=== PATIENT | male | born 1965 | race Caucasian/White ===

== ENCOUNTER 2016-11-12 12:03 | Emergency (ER) | payer OTHER ==
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
[2016-11-12 13:13] VITALS: BP 158/96
== END 2016-11-12 12:40 ==
LOC: SUPCPDRO 12:03 → JD.ED 12:03 → MERGE 12:03 → JD.ED 12:40
DX: F10.10 Alcohol abuse, uncomplicated (principal); M25.561 Pain in right knee; M25.562 Pain in left knee; M25.552 Pain in left hip
CPT/HCPCS: 82962; 99282; 99284

== ENCOUNTER 2019-09-08 10:07 | Emergency (ER) | payer BC ==
[2019-09-08 10:31] VITALS: BP 152/97; PULSE 106
--- NOTE | 2019-09-08 11:39 | CR ---
Right fifth finger: 4 views of the right fifth finger were obtained. Comparison: No prior finger or hand exam is available. Dislocated PIP joint is noted. Middle phalanx is dislocated posteriorly in relation to the proximal phalanx. Diffuse soft tissue swelling is noted. Impression: 1. Dislocation as described above. Diagnostic code #3 This report was dictated in MDT
--- NOTE | 2019-09-08 12:43 | EDM.PDOC ---
ED HPI GENERAL MEDICAL PROBLEM - General Chief Complaint: Upper Extremity Injury/Pain Stated Complaint: PINKY INJURY WITH INFECTION Time Seen by Provider: 09/08/19 11:03 Source of Information: Reports: Patient History Limitations: Reports: No Limitations - History of Present Illness INITIAL COMMENTS - FREE TEXT/NARRATIVE: Patient is a 54-year-old male sent to the emergency department from the [place] with an injury to his right fifth finger. Patient is a neck alcoholic. On September 03, the patient states that he got up during the night and fell. He went to catch himself and cut his finger on the spring of a couch. Yesterday he noticed that the wound was becoming increasingly red swollen and had purulent drainage. He went to the [facility] and was given a 1 shot of 1 g Rocephin, however he refused x-rays at that time. He returned to the [facility] today for a second dose of Rocephin 1 g and voiced concern that he thinks he may have broken the finger. He was sent to our emergency department for evaluation. He denies any nausea, vomiting, fever, or chills. According to the notes from [facility], the erythema and edema to the finger has improved since yesterday. The healthcare provider at the [facility] was also concerned that he may need help to stop drinking. Discussed this with the patient he states that he does drink quite habitually. He has not drank in the last 2 days, however. He denies a history of seizures with alcohol withdrawal. He has been through treatment on one other occasion and stayed sober for 5 years. He denies needing assistance to stop drinkg and states "I know where to go if I need help. I've done it before". He is not currently working because the [employer] that he works for is not operating due to the COVID pandemic. 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 Right Finger-Index Pain Score (Numeric/FACES): 5 - Related Data Allergies Allergy/AdvReac Type Severity Reaction Status Date / Time No Known Allergies Allergy Verified 11/12/16 12:07 Home Meds: Home Meds cephALEXin [Keflex] 500 mg PO Q6H #20 capsule 09/08/19 [Rx] Past Medical History HEENT History: Reports: Impaired Vision Other HEENT History: wears eyeglasses Musculoskeletal History: Reports: Fracture Other Musculoskeletal History: plate and pin in left ankle - Past Surgical History GI Surgical History: Reports: Appendectomy Musculoskeletal Surgical History: Reports: Other (See Below) Other Musculoskeletal Surgeries/Procedures:: states had ankle "bust and had to have that fixed." Social & Family History - Tobacco Use Smoking Status *Q: Current Every Day Smoker Years of Tobacco use: 30 Packs/Tins Daily: 1 - Caffeine Use Caffeine Use: Reports: Coffee - Recreational Drug Use Recreational Drug Use: No Review of Systems - Review of Systems Review Of Systems: Comprehensive ROS is negative, except as noted in HPI. ED EXAM, GENERAL - Physical Exam Exam: See Below Exam Limited By: No Limitations General Appearance: Alert, WD/WN, No Apparent Distress Respiratory/Chest: No Respiratory Distress, Lungs Clear, Normal Breath Sounds, No Accessory Muscle Use, Chest Non-Tender Cardiovascular: Normal Peripheral Pulses, Regular Rate, Rhythm, No Edema, No Gallop, No JVD, No Murmur, No Rub Extremities: Other (2 cm horizontal laceration to the volar aspect of the right fifth finger between the MCP and the PIP joints. Small amount of purulent drainage noted from the laceration. It is slightly gaping.) Course - Vital Signs Last Recorded V/S: Last Vital Signs Temp 98.7 F 09/08/19 10:29 Pulse 106 H 09/08/19 10:29 Resp 20 09/08/19 10:29 BP 152/97 H 09/08/19 10:29 Pulse Ox 97 09/08/19 10:29 - Re-Assessments/Exams Free Text/Narrative Re-Assessment/Exam: 09/08/19 12:54 X-ray of the finger shows a dislocated PIP joint. There is some concern that there may be damage to the tendons or ligaments due to the depth of the laceration. Per [facility]'s notes, the erythema associate with infection has improved since yesterday. Called and spoke with Dr. Feng who is the on- call orthopedist. He recommended that the patient come to [facility] in [place] tomorrow to see a hand surgeon. Called [facility] and spoke with WILBERTO Reveles. She recommended that the patient arrived at [facility] tomorrow morning at 915 central time. He is to be n.p.o. after midnight. We will start him on oral Keflex for the infection to the laceration. An aluminum splint and antibiotic ointment has been applied to the finger. Discussed this with the patient and he is in agreement. Discharge instructions as documented Departure - Departure Time of Disposition: 12:56 Disposition: Home, Self-Care 01 Condition: Good Clinical Impression: Wound infection Dislocation, finger closed Qualifiers: Encounter type: initial encounter Qualified Code(s): S63.259A - Unspecified dislocation of unspecified finger, initial encounter - Discharge Information *PRESCRIPTION DRUG MONITORING PROGRAM REVIEWED*: No *COPY OF PRESCRIPTION DRUG MONITORING REPORT IN PATIENT DEVEN: No Prescriptions: cephALEXin [Keflex] 500 mg PO Q6H #20 capsule Instructions: Finger or Thumb Dislocation Referrals: PCP,None [Primary Care Provider] - Forms: ED Department Discharge Additional Instructions: Seen in the emergency department today for pain and swelling to your right pinky finger. On exam, there is an infection of the laceration on the surface of the skin. X-rays do show that you also dislocated your finger at the proximal interphalangeal joint. Arrangements have been made for you to be seen by a hand surgeon at the [facility] in [place]. You are to arrive there by 915 central time. It is essential that you do not eat or drink anything after midnight tonight in anticipation of surgery tomorrow. You have been prescribed an oral antibiotic, Keflex. Take this medication as prescribed to treat the infection in the wound. You may use Tylenol or ibuprofen as needed for pain. If you should experience any new or worsening symptoms of concern, please do not hesitate to return to the emergency department. Sepsis Event Note - Evaluation Sepsis Screening Result: No Definite Risk - Focused Exam Vital Signs: Vital Signs Temp Pulse Resp BP Pulse Ox 09/08/19 10:29 98.7 F 106 H 20 152/97 H 97 Date Exam was Performed: 09/08/19 Time Exam was Performed: 12:53
== END 2019-09-08 13:00 | disposition home or self-care (01) ==
LOC: JD.ED 10:07
DX: S63.286A Dislocation of proximal interphalangeal joint of right little finger, initial encounter (principal); F17.210 Nicotine dependence, cigarettes, uncomplicated; W45.8XXA Other foreign body or object entering through skin, initial encounter
CPT/HCPCS: 73140-26-F9; 73140-F9; 99282; 99283

== ENCOUNTER 2019-10-02 08:55 | Emergency (ER) | payer BC ==
[2019-10-02 09:08] VITALS: BP 173/107; PULSE 124
--- NOTE | 2019-10-02 09:40 | EDM.PDOC ---
ED HPI GENERAL MEDICAL PROBLEM - General Chief Complaint: Upper Extremity Injury/Pain Stated Complaint: POST SURGICAL ISSUES-R PINKY FINGER Time Seen by Provider: 10/02/19 09:25 Source of Information: Reports: Patient History Limitations: Reports: No Limitations - History of Present Illness INITIAL COMMENTS - FREE TEXT/NARRATIVE: The patient presents with left little finger, pain swelling and erythema. About 2 weeks ago he fell and dislocated his left little finger. He had surgery in [place] by who he thinks was Dr [facility]. He was on antibiotics for a week afterward. He said the swelling, pain and redness have never gotten better. He is scheduled for follow up on the 09 of October. He has no fever or chills. Onset: Sudden Duration: Week(s): Location: Reports: Upper Extremity, Right (little finger) Quality: Reports: Sharp Severity: Moderate Improves with: Reports: None Worsens with: Reports: None Associated Symptoms: Reports: No Other Symptoms Right Finger-Little Pain Score (Numeric/FACES): 5 - Related Data Allergies Allergy/AdvReac Type Severity Reaction Status Date / Time No Known Allergies Allergy Verified 10/02/19 09:08 Home Meds: Home Meds Hydrocodone/Acetaminophen [Hydrocodone-Acetamin 5-325 mg] 1 - 2 each PO Q6HR PRN #10 tablet 10/02/19 [Rx] cephALEXin [Keflex] 500 mg PO QID #40 capsule 10/02/19 [Rx] Past Medical History HEENT History: Reports: Impaired Vision Other HEENT History: wears eyeglasses Cardiovascular History: Reports: None Respiratory History: Reports: None Genitourinary History: Reports: None Musculoskeletal History: Reports: Fracture Other Musculoskeletal History: plate and pin in left ankle Neurological History: Reports: None Psychiatric History: Reports: Addiction Endocrine/Metabolic History: Reports: None Hematologic History: Reports: None Immunologic History: Reports: None Oncologic (Cancer) History: Reports: None Dermatologic History: Reports: None - Infectious Disease History Infectious Disease History: Reports: None - Past Surgical History GI Surgical History: Reports: Appendectomy Musculoskeletal Surgical History: Reports: Other (See Below) Other Musculoskeletal Surgeries/Procedures:: states had ankle "bust and had to have that fixed.". surgery to repair right pinky dislocation. Social & Family History - Tobacco Use Smoking Status *Q: Current Every Day Smoker Years of Tobacco use: 40 Packs/Tins Daily: 1 - Caffeine Use Caffeine Use: Reports: Coffee - Recreational Drug Use Recreational Drug Use: No Review of Systems - Review of Systems Review Of Systems: See Below Constitutional: Reports: No Symptoms Eyes: Reports: No Symptoms Ears: Reports: No Symptoms Nose: Reports: No Symptoms Mouth/Throat: Reports: No Symptoms Respiratory: Reports: No Symptoms Cardiovascular: Reports: No Symptoms GI/Abdominal: Reports: No Symptoms Musculoskeletal: Reports: Other (Pain, swelling and erythema of the right little finger) ED EXAM, GENERAL - Physical Exam Exam: See Below Exam Limited By: No Limitations General Appearance: Alert, No Apparent Distress Ears: Normal External Exam Nose: Normal Inspection Head: Atraumatic, Normocephalic Neck: Normal Inspection Respiratory/Chest: No Respiratory Distress Extremities: Other (Moderate swelling to the right little finger with erythema limited range of motion. Good sensation and capillary refill.) Course - Vital Signs Last Recorded V/S: Last Vital Signs Temp 97.8 F 10/02/19 09:03 Pulse 124 H 10/02/19 09:03 Resp 16 10/02/19 09:03 BP 173/107 H 10/02/19 09:03 Pulse Ox 94 L 10/02/19 09:03 - Re-Assessments/Exams Free Text/Narrative Re-Assessment/Exam: 10/02/19 09:39 I will get him back on antibiotics and something for pain and I will have him follow up with [facility] this week. Departure - Departure Time of Disposition: 09:40 Disposition: Home, Self-Care 01 Condition: Good Clinical Impression: Finger infection - Discharge Information *PRESCRIPTION DRUG MONITORING PROGRAM REVIEWED*: Not Applicable *COPY OF PRESCRIPTION DRUG MONITORING REPORT IN PATIENT DEVEN: Not Applicable Prescriptions: Hydrocodone/Acetaminophen [Hydrocodone-Acetamin 5-325 mg] 1 - 2 each PO Q6HR PRN #10 tablet PRN Reason: Pain cephALEXin [Keflex] 500 mg PO QID #40 capsule Referrals: PCP,None [Primary Care Provider] - Jacob Leonard MD [Ordering Only Provider] - 2 Days Additional Instructions: Take the keflex 4 times per day for 10 days. Take tylenol or motrin for pain. If that does not help, try the hydrocodone. Call [facility] tomorrow and see if they can get you in next week. Sepsis Event Note (ED) - Evaluation Sepsis Screening Result: No Definite Risk - Focused Exam Vital Signs: Vital Signs Temp Pulse Resp BP Pulse Ox 10/02/19 09:03 97.8 F 124 H 16 173/107 H 94 L
== END 2019-10-02 09:50 | disposition home or self-care (01) ==
LOC: JD.ED 08:55
DX: L08.9 Local infection of the skin and subcutaneous tissue, unspecified (principal); F17.210 Nicotine dependence, cigarettes, uncomplicated
CPT/HCPCS: 99283

== ENCOUNTER 2019-10-11 00:15 | Emergency (ER) | payer BC ==
[2019-10-11 00:30] VITALS: BP 150/98; PULSE 100
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
== END 2019-10-11 00:52 ==
LOC: JD.ED 00:15
DX: F10.129 Alcohol abuse with intoxication, unspecified (principal); Z77.22 Contact with and (suspected) exposure to environmental tobacco smoke (acute) (chronic)
CPT/HCPCS: 99284

== ENCOUNTER 2023-03-24 16:51 | Emergency (ER) | payer BC ==
[2023-03-24] MEDS ORDERED: Lactated Ringers 1,000 ML IV ONE (17:19)
[2023-03-24 17:57] LABS: BARBITURATE SCREEN,URINE NEGATIVE (CUTOFF=200); BENZODIAZEPINES SCREEN,URINE NEGATIVE (CUTOFF=150); BUPRENORPHINE SCREEN,URINE NEGATIVE (CUTOFF=10); METHADONE SCREEN, URINE NEGATIVE (CUT0FF=200); METHAMPHETAMINES SCREEN, URINE NEGATIVE (CUTOFF=500); OXYCODONE SCREEN,URINE NEGATIVE (CUT0FF=100); THC SCREEN,URINE 20 NG/ML NEGATIVE (CUTOFF=50)
[2023-03-24 18:01] LABS: AMPHETAMINES SCREEN, URINE NEGATIVE (CUTOFF=500)
[2023-03-24] MEDS ORDERED: Thiamine 100 MG Tab PO ONE (19:14)
[2023-03-24] MEDS ORDERED: Folic Acid 1 MG Tab PO ONE (19:14)
[2023-03-24 19:15] LABS: BASOPHILS PERCENT AUTO 0.7 % (0.0-1.0); EOSINOPHILS PERCENT AUTO 0.2 % (0.0-6.0); HEMATOCRIT 42.3 % (42.0-52.0); HEMOGLOBIN 14.9 gm/dl (14.0-18.0); IMMATURE GRAN ABSOLUTE AUTO 0.01 K/mm3 (0.00-0.05); IMMATURE GRAN PERCENT AUTO 0.2 % (0.0-0.4); LYMPHOCYTES ABSOLUTE AUTO 2.1 K/mm3 (1.0-4.8); LYMPHOCYTES PERCENT AUTO 37.1 % (24.0-44.0); MEAN CORPUSCULAR HEMOGLOBIN 35.5 pg (28.0-32.0); MEAN CORPUSCULAR HGB CONC 35.2 g/dl (32.0-36.0); MEAN CORPUSCULAR VOLUME 100.7 fl (83.0-99.0); MEAN PLATELET VOLUME 9.1 fl (9.4-12.4); MONOCYTES ABSOLUTE AUTO 0.6 K/mm3 (0.0-0.8); MONOCYTES PERCENT AUTO 10.3 % (0.0-8.0); NEUTROPHILS ABSOLUTE AUTO 2.9 K/mm3 (1.8-7.7); NEUTROPHILS PERCENT AUTO 51.5 % (41.0-71.0); PLATELET COUNT,PLT 216 K/mm3 (150-400); WHITE BLOOD CELL COUNT,WBC 5.61 K/mm3 (3.9-11.3)
[2023-03-24] MEDS ORDERED: Sodium Chloride 0.9% 1,000 ML IV SCH (19:15)
[2023-03-24 19:44] LABS: ETHANOL BLOOD MEDICAL 0.46 gm% (0.00); MAGNESIUM 1.5 mg/dL (1.8-2.4)
[2023-03-24 19:56] LABS: ALBUMIN 3.6 g/dl (3.4-5.0); ANION GAP 15.2 (5-15); BILIRUBIN TOTAL 0.5 mg/dL (0.2-1.0); BUN/CREATININE RATIO 11.3 (14-18); CREATININE 0.8 mg/dL (0.7-1.3); EST CRCL DRUG DOSING (CG) 97.38 mL/min; POTASSIUM,K 3.2 mEq/L (3.5-5.1); PROTEIN TOTAL,TP 7.2 g/dl (6.4-8.2)
[2023-03-24] MEDS ORDERED: Magnesium Oxide 400 MG Tab PO ONE (20:05)
[2023-03-24] MEDS ORDERED: Potassium Chloride 20 MEQ Tab.ER PO ONE (20:05)
[2023-03-24 23:32] VITALS: BP 132/83; PULSE 74
== END 2023-03-24 22:30 | disposition home or self-care (01) ==
LOC: JD.ED 16:51
DX: F10.929 Alcohol use, unspecified with intoxication, unspecified (principal); M48.02 Spinal stenosis, cervical region; F17.210 Nicotine dependence, cigarettes, uncomplicated; Z79.899 Other long term (current) drug therapy
CPT/HCPCS: 36415; 70450; 72125; 80053; 80306; 80307; 83735; 85025; 96360; 96361; 99284; A9270; J7030; J7120; 99282

== ENCOUNTER 2023-07-27 18:12 | Emergency (ER) | payer BC ==
[2023-07-27] MEDS: Albuterol/Ipratropium 3.0-0.5 MG/3 ML Neb Soln NEB ONE (18:50)
[2023-07-27 19:30] LABS: BASOPHILS ABSOLUTE AUTO 0.1 K/mm3 (0.0-0.2); BASOPHILS PERCENT AUTO 1.8 % (0.0-1.0); EOSINOPHILS ABSOLUTE AUTO 0.1 K/mm3 (0.0-0.4); EOSINOPHILS PERCENT AUTO 1.2 % (0.0-6.0); IMMATURE GRAN ABSOLUTE AUTO 0.03 K/mm3 (0.00-0.05); IMMATURE GRAN PERCENT AUTO 0.6 % (0.0-0.4); LYMPHOCYTES ABSOLUTE AUTO 1.5 K/mm3 (1.0-4.8); LYMPHOCYTES PERCENT AUTO 30.6 % (24.0-44.0); MEAN CORPUSCULAR HEMOGLOBIN 34.9 pg (28.0-32.0); MEAN CORPUSCULAR HGB CONC 35.2 g/dl (32.0-36.0); MEAN CORPUSCULAR VOLUME 99.2 fl (83.0-99.0); MEAN PLATELET VOLUME 9.1 fl (9.4-12.4); MONOCYTES ABSOLUTE AUTO 0.6 K/mm3 (0.0-0.8); MONOCYTES PERCENT AUTO 12.5 % (0.0-8.0); NEUTROPHILS ABSOLUTE AUTO 2.7 K/mm3 (1.8-7.7); NEUTROPHILS PERCENT AUTO 53.3 % (41.0-71.0); RED BLOOD CELL COUNT 5.04 M/mm3 (4.52-5.90); WHITE BLOOD CELL COUNT,WBC 5.03 K/mm3 (3.9-11.3)
[2023-07-27 19:31] LABS: HEMOGLOBIN 17.6 gm/dl (14.0-18.0); PLATELET COUNT,PLT 354 K/mm3 (150-400)
[2023-07-27] MEDS: Folic Acid 1 MG Tab PO ONE (19:31)
[2023-07-27] MEDS: Thiamine 100 MG Tab PO ONE (19:31)
[2023-07-27] MEDS: Sodium Chloride 0.9% 1,000 ML IV SCH (19:31)
[2023-07-27 19:55] LABS: A/G RATIO 1.1 (1-2); ALBUMIN 4.4 g/dl (3.4-5.0); ANION GAP 23.6 (5-15); BILIRUBIN TOTAL 0.5 mg/dL (0.2-1.0); BUN/CREATININE RATIO 16.4 (14-18); CALCIUM 9.3 mg/dL (8.5-10.1); CREATININE 1.1 mg/dL (0.7-1.3); EST CRCL DRUG DOSING (CG) 68.27 mL/min; ETHANOL BLOOD MEDICAL 0.38 gm% (0.00); POTASSIUM,K 4.6 mEq/L (3.5-5.1); PROTEIN TOTAL,TP 8.3 g/dl (6.4-8.2)
[2023-07-27 23:31] VITALS: BP 137/84; PULSE 115
== END 2023-07-27 21:15 | disposition home or self-care (01) ==
LOC: JD.ED 18:12
DX: F10.129 Alcohol abuse with intoxication, unspecified (principal); Z79.899 Other long term (current) drug therapy; Y90.1 Blood alcohol level of 20-39 mg/100 ml; Z90.49 Acquired absence of other specified parts of digestive tract
CPT/HCPCS: 36415; 71046; 80053; 80307; 85025; 94640; 96360; 99284; A9270; J7030; J7620-GY

== ENCOUNTER 2023-12-22 14:11 | Inpatient (IN) | payer BC ==
[2023-12-22] MEDS: Lactated Ringers 1,000 ML IV ONE ×3 (14:44→17:11)
[2023-12-22] MEDS: Sodium Chloride 0.9% 10 ML Syringe FLUSH PRN (14:45)
[2023-12-22 15:00] LABS: HEMATOCRIT 32.1 % (42.0-52.0); MEAN CORPUSCULAR HEMOGLOBIN 30.7 pg (28.0-32.0); MEAN CORPUSCULAR HGB CONC 32.4 g/dl (32.0-36.0); MEAN PLATELET VOLUME 8.7 fl (9.4-12.4); RED BLOOD CELL COUNT 3.39 M/mm3 (4.52-5.90); WHITE BLOOD CELL COUNT,WBC 20.01 K/mm3 (3.9-11.3)
[2023-12-22 15:02] LABS: HEMOGLOBIN 10.4 gm/dl (14.0-18.0); MEAN CORPUSCULAR VOLUME 94.7 fl (83.0-99.0); PLATELET COUNT,PLT 801 K/mm3 (150-400)
[2023-12-22 15:08] LABS: INR 1.11; PROTHROMBIN TIME 11.7 SECONDS (9.7-12.0)
[2023-12-22 15:11] LABS: A/G RATIO 0.5 (1-2); ALBUMIN 2.3 g/dl (3.4-5.0); ANION GAP 9.8 (5-15); BILIRUBIN TOTAL 0.7 mg/dL (0.2-1.0); CALCIUM 9.5 mg/dL (8.5-10.1); CREATININE 0.7 mg/dL (0.7-1.3); EST CRCL DRUG DOSING (CG) 93.75 mL/min; POTASSIUM,K 3.8 mEq/L (3.5-5.1); PROTEIN TOTAL,TP 7.2 g/dl (6.4-8.2)
[2023-12-22 15:14] LABS: LACTIC ACID 1.5 mmol/L (0.4-2.0)
[2023-12-22 15:27] LABS: CORONAVIRUS COVID-19 NAA NEGATIVE (NEGATIVE); INFLUENZA A NAA NEGATIVE (NEGATIVE); RESPIRATORY SYNCYTIAL VIR NAA NEGATIVE (NEGATIVE)
[2023-12-22 15:52] LABS: BAND PERCENT MAN 0 % (0-10); BASOPHILS PERCENT MAN 0 (0.2-1.2); EOSINOPHILS PERCENT MAN 0 % (0.8-7.0); LYMPHOCYTES % ATYPICAL MANUAL 0 %; LYMPHOCYTES PERCENT MAN 16 % (20-40); MONOCYTES PERCENT MAN 7 % (2-10)
[2023-12-22 15:53] LABS: PLATELET COUNT ESTIMATE INCREASED
[2023-12-22] MEDS: Piperacillin/Tazobactam 4.5 GM in Sodium Chloride 0.9% 100 ML IV ONE (15:55)
[2023-12-22] MEDS ORDERED: Lidocaine/Epineph/Tetracaine 3 ML Syringe TOP ONE (16:51)
[2023-12-22] MEDS: Piperacillin/Tazobactam 4.5 GM in Sodium Chloride 0.9% 100 ML IV SCH (23:32)
[2023-12-23] MEDS: Albuterol/Ipratropium 3.0-0.5 MG/3 ML Neb Soln NEB PRN (00:36)
[2023-12-23 05:26] LABS: A/G RATIO 0.5 (1-2); ALBUMIN 1.8 g/dl (3.4-5.0); ANION GAP 11.3 (5-15); BILIRUBIN TOTAL 0.4 mg/dL (0.2-1.0); BUN/CREATININE RATIO 8.6 (14-18); C-REACTIVE PROTEIN 14.36 mg/dL (<0.30); CALCIUM 8.2 mg/dL (8.5-10.1); CREATININE 0.7 mg/dL (0.7-1.3); EST CRCL DRUG DOSING (CG) 96.01 mL/min; POTASSIUM,K 3.3 mEq/L (3.5-5.1); PROTEIN TOTAL,TP 5.6 g/dl (6.4-8.2)
[2023-12-23] MEDS ORDERED: LORazepam 2 MG/ML SDV IVPUSH PRN ×2 (07:15→07:27)
[2023-12-23] MEDS ORDERED: LORazepam 1 MG Tab PO PRN (07:32)
[2023-12-23 07:40] LABS: BASOPHILS PERCENT AUTO 0.2 % (0.0-1.0); EOSINOPHILS PERCENT AUTO 0.2 % (0.0-6.0); IMMATURE GRAN ABSOLUTE AUTO 0.16 K/mm3 (0.00-0.05); IMMATURE GRAN PERCENT AUTO 0.8 % (0.0-0.4); LYMPHOCYTES ABSOLUTE AUTO 1.3 K/mm3 (1.0-4.8); LYMPHOCYTES PERCENT AUTO 6.7 % (24.0-44.0); MEAN CORPUSCULAR HEMOGLOBIN 31.1 pg (28.0-32.0); MEAN CORPUSCULAR HGB CONC 32.3 g/dl (32.0-36.0); MEAN CORPUSCULAR VOLUME 96.3 fl (83.0-99.0); MONOCYTES ABSOLUTE AUTO 1.7 K/mm3 (0.0-0.8); MONOCYTES PERCENT AUTO 8.7 % (0.0-8.0); NEUTROPHILS PERCENT AUTO 83.4 % (41.0-71.0); WHITE BLOOD CELL COUNT,WBC 19.17 K/mm3 (3.9-11.3)
[2023-12-23 07:42] LABS: HEMOGLOBIN 8.4 gm/dl (14.0-18.0); PLATELET COUNT,PLT 655 K/mm3 (150-400)
[2023-12-23 07:43] LABS: AMPHETAMINES SCREEN, URINE NEGATIVE (CUTOFF=500); BARBITURATE SCREEN,URINE NEGATIVE (CUTOFF=200); BENZODIAZEPINES SCREEN,URINE NEGATIVE (CUTOFF=150); BUPRENORPHINE SCREEN,URINE NEGATIVE (CUTOFF=10); METHADONE SCREEN, URINE NEGATIVE (CUT0FF=200); METHAMPHETAMINES SCREEN, URINE NEGATIVE (CUTOFF=500); OXYCODONE SCREEN,URINE NEGATIVE (CUT0FF=100); THC SCREEN,URINE 20 NG/ML NEGATIVE (CUTOFF=50)
[2023-12-23] MEDS: LORazepam 2 MG/ML SDV IVPUSH PRN ×2 (07:46→22:31)
[2023-12-23 07:52] LABS: SLIDE REVIEW ABNORMAL SMEAR
[2023-12-23] MEDS: Enoxaparin 40 MG/0.4 ML Syringe SUBCUT SCH (08:40)
[2023-12-23] MEDS: Potassium Chloride 20 MEQ Tab.ER PO ONE (20:16)
[2023-12-24 04:54] LABS: BASOPHILS ABSOLUTE AUTO 0.1 K/mm3 (0.0-0.2); BASOPHILS PERCENT AUTO 0.3 % (0.0-1.0); EOSINOPHILS ABSOLUTE AUTO 0.1 K/mm3 (0.0-0.4); EOSINOPHILS PERCENT AUTO 0.5 % (0.0-6.0); HEMATOCRIT 27.6 % (42.0-52.0); HEMOGLOBIN 8.8 gm/dl (14.0-18.0); IMMATURE GRAN ABSOLUTE AUTO 0.17 K/mm3 (0.00-0.05); IMMATURE GRAN PERCENT AUTO 0.9 % (0.0-0.4); LYMPHOCYTES ABSOLUTE AUTO 1.9 K/mm3 (1.0-4.8); LYMPHOCYTES PERCENT AUTO 10.1 % (24.0-44.0); MEAN CORPUSCULAR HEMOGLOBIN 30.8 pg (28.0-32.0); MEAN CORPUSCULAR HGB CONC 31.9 g/dl (32.0-36.0); MEAN CORPUSCULAR VOLUME 96.5 fl (83.0-99.0); MEAN PLATELET VOLUME 8.6 fl (9.4-12.4); MONOCYTES ABSOLUTE AUTO 1.5 K/mm3 (0.0-0.8); MONOCYTES PERCENT AUTO 7.9 % (0.0-8.0); NEUTROPHILS ABSOLUTE AUTO 14.8 K/mm3 (1.8-7.7); NEUTROPHILS PERCENT AUTO 80.3 % (41.0-71.0); PLATELET COUNT,PLT 765 K/mm3 (150-400); RED BLOOD CELL COUNT 2.86 M/mm3 (4.52-5.90); WHITE BLOOD CELL COUNT,WBC 18.38 K/mm3 (3.9-11.3)
[2023-12-24 05:23] LABS: A/G RATIO 0.5 (1-2); ALBUMIN 1.9 g/dl (3.4-5.0); ANION GAP 9.7 (5-15); BILIRUBIN TOTAL 0.4 mg/dL (0.2-1.0); BUN/CREATININE RATIO 11.4 (14-18); C-REACTIVE PROTEIN 10.74 mg/dL (<0.30); CALCIUM 9.1 mg/dL (8.5-10.1); CREATININE 0.7 mg/dL (0.7-1.3); EST CRCL DRUG DOSING (CG) 95.5 mL/min; MAGNESIUM 1.8 mg/dL (1.8-2.4); PHOSPHORUS 3.5 mg/dL (2.6-4.7); POTASSIUM,K 4.7 mEq/L (3.5-5.1); PROTEIN TOTAL,TP 6.1 g/dl (6.4-8.2)
[2023-12-24] MEDS: Magnesium Sulfate/Water 4 GM in Premix Bag 1 BAG IV ONE (14:45)
[2023-12-25 04:48] LABS: BASOPHILS ABSOLUTE AUTO 0.1 K/mm3 (0.0-0.2); BASOPHILS PERCENT AUTO 0.3 % (0.0-1.0); EOSINOPHILS ABSOLUTE AUTO 0.2 K/mm3 (0.0-0.4); EOSINOPHILS PERCENT AUTO 0.8 % (0.0-6.0); HEMATOCRIT 27.6 % (42.0-52.0); IMMATURE GRAN ABSOLUTE AUTO 0.32 K/mm3 (0.00-0.05); IMMATURE GRAN PERCENT AUTO 1.7 % (0.0-0.4); LYMPHOCYTES PERCENT AUTO 10.4 % (24.0-44.0); MEAN CORPUSCULAR HEMOGLOBIN 30.6 pg (28.0-32.0); MEAN CORPUSCULAR HGB CONC 32.6 g/dl (32.0-36.0); MEAN CORPUSCULAR VOLUME 93.9 fl (83.0-99.0); MEAN PLATELET VOLUME 8.5 fl (9.4-12.4); MONOCYTES ABSOLUTE AUTO 1.7 K/mm3 (0.0-0.8); MONOCYTES PERCENT AUTO 8.8 % (0.0-8.0); NEUTROPHILS ABSOLUTE AUTO 14.8 K/mm3 (1.8-7.7); PLATELET COUNT,PLT 717 K/mm3 (150-400); RED BLOOD CELL COUNT 2.94 M/mm3 (4.52-5.90); WHITE BLOOD CELL COUNT,WBC 19.02 K/mm3 (3.9-11.3)
[2023-12-25 05:14] LABS: A/G RATIO 0.5 (1-2); ALBUMIN 2.1 g/dl (3.4-5.0); ANION GAP 11.1 (5-15); BILIRUBIN TOTAL 0.4 mg/dL (0.2-1.0); BUN/CREATININE RATIO 15.7 (14-18); CALCIUM 8.5 mg/dL (8.5-10.1); CREATININE 0.7 mg/dL (0.7-1.3); EST CRCL DRUG DOSING (CG) 95.5 mL/min; MAGNESIUM 2.1 mg/dL (1.8-2.4); PHOSPHORUS 3.2 mg/dL (2.6-4.7); POTASSIUM,K 4.1 mEq/L (3.5-5.1); PROTEIN TOTAL,TP 6.2 g/dl (6.4-8.2); TSH 5.091 uIU/mL (0.358-3.74)
[2023-12-25 05:39] LABS: FOLIC ACID 6.5 ng/mL (8.6-58.9)
[2023-12-25 06:13] LABS: SLIDE REVIEW ABNORMAL SMEAR
[2023-12-25 07:47] LABS: T4 FREE 0.95 ng/dL (0.76-1.46)
[2023-12-25] MEDS: Folic Acid 1 MG Tab PO SCH (12:10)
[2023-12-25] MEDS: Thiamine 100 MG Tab PO SCH (12:10)
[2023-12-25] MEDS: Cholecalciferol (Vitamin D3) 5,000 UNIT Cap PO SCH (12:10)
[2023-12-25] MEDS: Sodium Chloride 0.9% 1,000 ML IV SCH (15:02)
[2023-12-25] MEDS: Nicotine 21 MG/24 Hr Patch TRDERM SCH (15:03)
[2023-12-26 05:38] LABS: BASOPHILS ABSOLUTE AUTO 0.1 K/mm3 (0.0-0.2); BASOPHILS PERCENT AUTO 0.4 % (0.0-1.0); EOSINOPHILS ABSOLUTE AUTO 0.2 K/mm3 (0.0-0.4); EOSINOPHILS PERCENT AUTO 1.3 % (0.0-6.0); HEMATOCRIT 27.8 % (42.0-52.0); HEMOGLOBIN 8.9 gm/dl (14.0-18.0); IMMATURE GRAN ABSOLUTE AUTO 0.32 K/mm3 (0.00-0.05); LYMPHOCYTES ABSOLUTE AUTO 1.9 K/mm3 (1.0-4.8); LYMPHOCYTES PERCENT AUTO 11.7 % (24.0-44.0); MEAN CORPUSCULAR HEMOGLOBIN 30.2 pg (28.0-32.0); MEAN CORPUSCULAR VOLUME 94.2 fl (83.0-99.0); MEAN PLATELET VOLUME 8.4 fl (9.4-12.4); MONOCYTES ABSOLUTE AUTO 1.4 K/mm3 (0.0-0.8); MONOCYTES PERCENT AUTO 8.8 % (0.0-8.0); NEUTROPHILS ABSOLUTE AUTO 12.1 K/mm3 (1.8-7.7); NEUTROPHILS PERCENT AUTO 75.8 % (41.0-71.0); PLATELET COUNT,PLT 710 K/mm3 (150-400); RED BLOOD CELL COUNT 2.95 M/mm3 (4.52-5.90); WHITE BLOOD CELL COUNT,WBC 15.93 K/mm3 (3.9-11.3)
[2023-12-26 06:10] LABS: A/G RATIO 0.5 (1-2); ALBUMIN 2.1 g/dl (3.4-5.0); BILIRUBIN TOTAL 0.3 mg/dL (0.2-1.0); BUN/CREATININE RATIO 14.3 (14-18); C-REACTIVE PROTEIN 6.49 mg/dL (<0.30); CALCIUM 8.9 mg/dL (8.5-10.1); CREATININE 0.7 mg/dL (0.7-1.3); EST CRCL DRUG DOSING (CG) 93.24 mL/min; MAGNESIUM 1.8 mg/dL (1.8-2.4); PROTEIN TOTAL,TP 6.4 g/dl (6.4-8.2)
[2023-12-26] MEDS ORDERED: Cholecalciferol (Vitamin D3) 5,000 UNIT Cap PO SCH (15:30)
[2023-12-26] MEDS: Magnesium Sulfate/Water 4 GM in Premix Bag 1 BAG IV ONE (15:35)
[2023-12-27 05:38] LABS: BASOPHILS ABSOLUTE AUTO 0.1 K/mm3 (0.0-0.2); BASOPHILS PERCENT AUTO 0.5 % (0.0-1.0); EOSINOPHILS ABSOLUTE AUTO 0.3 K/mm3 (0.0-0.4); HEMATOCRIT 30.1 % (42.0-52.0); HEMOGLOBIN 9.7 gm/dl (14.0-18.0); IMMATURE GRAN ABSOLUTE AUTO 0.37 K/mm3 (0.00-0.05); IMMATURE GRAN PERCENT AUTO 2.4 % (0.0-0.4); LYMPHOCYTES ABSOLUTE AUTO 2.8 K/mm3 (1.0-4.8); LYMPHOCYTES PERCENT AUTO 18.1 % (24.0-44.0); MEAN CORPUSCULAR HEMOGLOBIN 30.3 pg (28.0-32.0); MEAN CORPUSCULAR HGB CONC 32.2 g/dl (32.0-36.0); MEAN CORPUSCULAR VOLUME 94.1 fl (83.0-99.0); MEAN PLATELET VOLUME 8.5 fl (9.4-12.4); MONOCYTES ABSOLUTE AUTO 1.3 K/mm3 (0.0-0.8); MONOCYTES PERCENT AUTO 8.8 % (0.0-8.0); NEUTROPHILS ABSOLUTE AUTO 10.4 K/mm3 (1.8-7.7); NEUTROPHILS PERCENT AUTO 68.2 % (41.0-71.0); PLATELET COUNT,PLT 751 K/mm3 (150-400); WHITE BLOOD CELL COUNT,WBC 15.22 K/mm3 (3.9-11.3)
[2023-12-27 05:54] LABS: A/G RATIO 0.5 (1-2); ALBUMIN 2.2 g/dl (3.4-5.0); ANION GAP 11.7 (5-15); BILIRUBIN TOTAL 0.3 mg/dL (0.2-1.0); BUN/CREATININE RATIO 12.5 (14-18); CALCIUM 8.9 mg/dL (8.5-10.1); CREATININE 0.8 mg/dL (0.7-1.3); EST CRCL DRUG DOSING (CG) 82.16 mL/min; MAGNESIUM 1.9 mg/dL (1.8-2.4); POTASSIUM,K 3.7 mEq/L (3.5-5.1); PROTEIN TOTAL,TP 6.6 g/dl (6.4-8.2)
[2023-12-27] MEDS: Acetaminophen 325 MG Tab PO PRN (08:36)
[2023-12-27] MEDS: Ondansetron 4 MG Tab.DIS PO PRN (09:22)
[2023-12-27] MEDS: Magnesium Sulfate/Water 2 GM in Premix Bag 1 BAG IV ONE (13:08)
[2023-12-27] MEDS: Potassium Chloride 20 MEQ Tab.ER PO ONE (13:09)
[2023-12-28 05:32] LABS: BASOPHILS ABSOLUTE AUTO 0.1 K/mm3 (0.0-0.2); BASOPHILS PERCENT AUTO 0.6 % (0.0-1.0); EOSINOPHILS ABSOLUTE AUTO 0.4 K/mm3 (0.0-0.4); EOSINOPHILS PERCENT AUTO 2.3 % (0.0-6.0); HEMATOCRIT 30.5 % (42.0-52.0); HEMOGLOBIN 9.7 gm/dl (14.0-18.0); IMMATURE GRAN ABSOLUTE AUTO 0.36 K/mm3 (0.00-0.05); IMMATURE GRAN PERCENT AUTO 2.3 % (0.0-0.4); LYMPHOCYTES ABSOLUTE AUTO 2.3 K/mm3 (1.0-4.8); LYMPHOCYTES PERCENT AUTO 14.5 % (24.0-44.0); MEAN CORPUSCULAR HEMOGLOBIN 30.8 pg (28.0-32.0); MEAN CORPUSCULAR HGB CONC 31.8 g/dl (32.0-36.0); MEAN CORPUSCULAR VOLUME 96.8 fl (83.0-99.0); MEAN PLATELET VOLUME 8.4 fl (9.4-12.4); MONOCYTES ABSOLUTE AUTO 1.3 K/mm3 (0.0-0.8); MONOCYTES PERCENT AUTO 8.3 % (0.0-8.0); NEUTROPHILS ABSOLUTE AUTO 11.5 K/mm3 (1.8-7.7); PLATELET COUNT,PLT 768 K/mm3 (150-400); RED BLOOD CELL COUNT 3.15 M/mm3 (4.52-5.90); WHITE BLOOD CELL COUNT,WBC 15.97 K/mm3 (3.9-11.3)
[2023-12-28 06:06] LABS: A/G RATIO 0.5 (1-2); ALBUMIN 2.3 g/dl (3.4-5.0); ANION GAP 13.5 (5-15); BILIRUBIN TOTAL 0.2 mg/dL (0.2-1.0); CALCIUM 9.4 mg/dL (8.5-10.1); CREATININE 0.8 mg/dL (0.7-1.3); EST CRCL DRUG DOSING (CG) 82.16 mL/min; POTASSIUM,K 4.5 mEq/L (3.5-5.1); PROTEIN TOTAL,TP 6.7 g/dl (6.4-8.2)
[2023-12-28 10:17] VITALS: BP 127/70; PULSE 118
[2023-12-29 19:42] LABS: VITAMIN B1, WHOLE BLOOD 112 nmol/L (70-180)
== END 2023-12-28 09:55 | DRG 720 ==
LOC: JD.ED 14:11 → JD.MS 20:42
PROVIDERS: ADMIT Family Medicine; ATTEND Family Medicine
DX: A41.9 Sepsis, unspecified organism (principal); J18.9 Pneumonia, unspecified organism; J44.0 Chronic obstructive pulmonary disease with (acute) lower respiratory infection; J96.01 Acute respiratory failure with hypoxia; E87.1 Hypo-osmolality and hyponatremia; F41.9 Anxiety disorder, unspecified; F32.A Depression, unspecified; S22.41XA Multiple fractures of ribs, right side, initial encounter for closed fracture; H54.7 Unspecified visual loss; D75.839 Thrombocytosis, unspecified; J43.9 Emphysema, unspecified; R74.01 Elevation of levels of liver transaminase levels; E55.9 Vitamin D deficiency, unspecified; R65.20 Severe sepsis without septic shock; D52.9 Folate deficiency anemia, unspecified; F10.139 Alcohol abuse with withdrawal, unspecified; Z90.49 Acquired absence of other specified parts of digestive tract; Z79.899 Other long term (current) drug therapy; Z87.891 Personal history of nicotine dependence; Z98.890 Other specified postprocedural states; X58.XXXA Exposure to other specified factors, initial encounter
CPT/HCPCS: 0241U; 36415; 70450; 70450-26; 71045; 71045-26; 76705; 76705-26; 80053; 80306; 80307; 82140; 82306; 82607; 82728; 82746; 83540; 83605; 83615; 83735; 84100; 84425; 84439; 84443; 84466; 85007; 85025; 85027; 85610; 85730; 86140; 87040; 87070; 87205; 87641; 87899; 94640; 94760; 94761; 96365; 97116-GP; 97161-GP; 99223; 99232; 99239; 99285; 99285-25; A9270-GY; J1650; J2060; J2543; J3475; J3490; J7030; J7120; J7620-GY

== ENCOUNTER 2024-07-11 10:10 | Emergency (ER) | payer BC ==
[2024-07-11 10:30] VITALS: PULSE 134
[2024-07-11 11:17] LABS: HEMATOCRIT 36.8 % (42.0-52.0); HEMOGLOBIN 12.6 gm/dl (14.0-18.0); MEAN CORPUSCULAR HEMOGLOBIN 34.2 pg (28.0-32.0); MEAN CORPUSCULAR HGB CONC 34.2 g/dl (32.0-36.0); MEAN PLATELET VOLUME 8.5 fl (9.4-12.4); PLATELET COUNT,PLT 436 K/mm3 (150-400); RED BLOOD CELL COUNT 3.68 M/mm3 (4.52-5.90); WHITE BLOOD CELL COUNT,WBC 12.12 K/mm3 (3.9-11.3)
[2024-07-11 11:37] LABS: INR 0.96; PROTHROMBIN TIME 10.2 SECONDS (9.7-12.0)
[2024-07-11 11:41] LABS: ALBUMIN 3.3 g/dl (3.4-5.0); ANION GAP 11.6 (5-15); BILIRUBIN TOTAL 0.3 mg/dL (0.2-1.0); BUN/CREATININE RATIO 11.4 (14-18); C-REACTIVE PROTEIN 1.26 mg/dL (<0.30); CALCIUM 9.8 mg/dL (8.5-10.1); CREATININE 0.7 mg/dL (0.7-1.3); EST CRCL DRUG DOSING (CG) 118.29 mL/min; POTASSIUM,K 3.6 mEq/L (3.5-5.1); PROTEIN TOTAL,TP 6.7 g/dl (6.4-8.2)
[2024-07-11] MEDS: Sodium Chloride 0.9% 1,000 ML IV ONE ×3 (11:42→14:58)
[2024-07-11] MEDS: Sodium Chloride 0.9% 10 ML Syringe FLUSH PRN (11:45)
[2024-07-11 11:51] LABS: LACTIC ACID 2.8 mmol/L (0.4-2.0)
[2024-07-11 11:56] LABS: BAND PERCENT MAN 0 % (0-10)
[2024-07-11 11:57] LABS: BASOPHILS PERCENT MAN 0 (0.2-1.2); EOSINOPHILS PERCENT MAN 0 % (0.8-7.0); LYMPHOCYTES PERCENT MAN 17 % (20-40); MONOCYTES PERCENT MAN 4 % (2-10)
[2024-07-11] MEDS: cefTRIAXone 2 GM Vial IVPUSH ONE (12:36)
[2024-07-11] MEDS: HYDROmorphone 0.5 MG/0.5 ML Syringe IVPUSH ONE (14:32)
[2024-07-11 20:25] VITALS: BP 139/81
== END 2024-07-11 17:31 | disposition home or self-care (01) ==
LOC: JD.ED 10:10
DX: T33.831A Superficial frostbite of right toe(s), initial encounter (principal); T33.832A Superficial frostbite of left toe(s), initial encounter; J45.909 Unspecified asthma, uncomplicated; F17.210 Nicotine dependence, cigarettes, uncomplicated; Z79.899 Other long term (current) drug therapy; Z79.51 Long term (current) use of inhaled steroids; Z86.16 Personal history of COVID-19; X31.XXXA Exposure to excessive natural cold, initial encounter; Y93.89 Activity, other specified
CPT/HCPCS: 36415; 736302650; 73630-50; 80053; 80307; 83605; 85007; 85027; 85610; 86140; 87040; 96361; 96374; 96375; 99283-25; 99284; J0696; J7030